=== PATIENT | male | born 1930 | race Caucasian/White ===

== ENCOUNTER 2018-04-18 09:10 | Inpatient (IN) | payer MEDICARE, BC ==
[~2018-04-18] VITALS: Ht 170.2 cm; Wt 60.0 kg
[2018-04-18] MEDS ORDERED: ipratropium/albuterol 3ml nebule NEB ONE (09:45)
[2018-04-18 10:24] LABS: BASOPHILS # (AUTO) 0.1 X10'3 (0-0.2); BASOPHILS % (AUTO) 0.8 % (0-1); EOSINOPHILS % (AUTO) 0.7 % (0-6); HEMATOCRIT 43.1 % (42.0-52.0); HEMOGLOBIN 14.3 g/dl (14.0-17.9); LYMPHOCYTES # (AUTO) 0.6 X10'3 (1.1-4.8); LYMPHOCYTES % (AUTO) 8.1 % (21-51); MEAN CORPUSCULAR HEMOGLOBIN 31.9 PG (27.0-31.0); MEAN CORPUSCULAR HGB CONC 33.2 % (33.0-36.5); MEAN CORPUSCULAR VOLUME 95.9 FL (78-98); MEAN PLATELET VOLUME 7.5 FL (7.4-10.4); MONOCYTES # (AUTO) 0.5 X10'3 (0-0.9); MONOCYTES % (AUTO) 7.7 % (2-12); NEUTROPHILS # (AUTO) 5.6 X10'3 (1.8-7.7); NEUTROPHILS % (AUTO) 82.7 % (42-75); PLATELET COUNT 234 X10'3 (140-440); RED BLOOD COUNT 4.49 X10'6 (4.70-6.10); RED CELL DISTRIBUTION WIDTH 14.4 % (11.5-14.5); WHITE BLOOD COUNT 6.8 X10'3 (4.5-11.0)
[2018-04-18 10:31] LABS: PARTIAL THROMBOPLASTIN TIME 25 SECONDS (22-32); PROTHROMBIN TIME 10.1 SECONDS (9.0-12.0)
[2018-04-18 10:38] LABS: ALANINE AMINOTRANSFERASE 29 U/L (12-78); ALBUMIN 3.2 G/DL (3.4-5.0); ALKALINE PHOSPHATASE 66 IU/L (46-116); ANION GAP 5 (8-16); ASPARTATE AMINO TRANSFERASE 22 U/L (10-37); BILIRUBIN,TOTAL 0.9 MG/DL (0.1-1.0); BLOOD UREA NITROGEN 31 MG/DL (7-18); BUN/CREATININE RATIO 28.4 (5.4-32.0); CHLORIDE 105 MMOL/L (99-107); CREATININE 1.09 MG/DL (0.60-1.10); GLUCOSE 102 MG/DL (70-104); POTASSIUM 3.7 MMOL/L (3.5-5.1); SODIUM 143 MMOL/L (135-145); TOTAL CARBON DIOXIDE 33.3 MMOL/L (24-32); TOTAL PROTEIN 6.3 G/DL (6.4-8.2); eGFR 64 ML/MIN
[2018-04-18] MEDS ORDERED: PRED5TAB PO (10:55)
[2018-04-18 13:17] LABS: OCCULT BLOOD STOOL POSITIVE (Neg)
[2018-04-18] MEDS ORDERED: magnesium Cl slow-release 64mg tablet PO PRN (13:40)
[2018-04-18] MEDS ORDERED: potassium Cl 20 mEq SR tablet PO PRN ×2 (13:40)
[2018-04-18] MEDS ORDERED: mag hydrox/Alum hydrox/simeth 30ml oral suspension PO PRN (13:40)
[2018-04-18] MEDS ORDERED: PEG 3350/Na sulf,bicarb,Cl/KCl oral sol 4 liter bottle PO ONE (13:40)
[2018-04-18] MEDS ORDERED: ondansetron/PF 4mg/2ml inj IV PRN (13:40)
[2018-04-18] MEDS ORDERED: acetaminophen 325mg tablet PO PRN (13:40)
[2018-04-18] MEDS ORDERED: magnesium 1gm/100ml D5W IVPB 100 ML IV PRN (13:40)
[2018-04-18] MEDS ORDERED: magnesium 4gm in 100ml NS 100 ML IV PRN (13:40)
[2018-04-18] MEDS ORDERED: potassium Cl 40MEQ/NS 500ml 500 ML IV PRN ×2 (13:40)
[2018-04-18 14:44] LABS: HEMATOCRIT 38.2 % (42.0-52.0); HEMOGLOBIN 12.9 g/dl (14.0-17.9); MEAN CORPUSCULAR HEMOGLOBIN 32.3 PG (27.0-31.0); MEAN CORPUSCULAR HGB CONC 33.7 % (33.0-36.5); MEAN CORPUSCULAR VOLUME 95.9 FL (78-98); MEAN PLATELET VOLUME 6.5 FL (7.4-10.4); PLATELET COUNT 256 X10'3 (140-440); RED BLOOD COUNT 3.98 X10'6 (4.70-6.10); RED CELL DISTRIBUTION WIDTH 14.3 % (11.5-14.5); WHITE BLOOD COUNT 7.2 X10'3 (4.5-11.0)
[2018-04-18 16:00] VITALS: BP 117/78
[2018-04-18 18:00] VITALS: BP 106/79
[2018-04-18 18:25] LABS: CLARITY,URINE SLIGHTLY CLOUDY (Clear); COLOR,URINE YELLOW (Yellow); GLUCOSE, URINE NEGATIVE (Neg); KETONES,URINE NEGATIVE (Neg); LEUKOCYTE ESTERASE ,URINE MODERATE (Neg); NITRITES, URINE NEGATIVE (Neg); OCCULT BLOOD,URINE LARGE (Neg); PH,URINE 5.5 (4.8-8.0); PROTEIN,URINE NEGATIVE (Neg); UROBILINOGEN,URINE 0.2 E.U/dL (0.2-1.0)
[2018-04-18] MEDS: prednisone 10mg tablet PO SCH (18:32)
[2018-04-18 18:33] LABS: UA COLLECTION TYPE NON-SPECIFIED
[2018-04-18 18:35] LABS: BACTERIA,URINE FEW /HPF (Neg); MUCUS STRANDS NONE SEEN /LPF (Neg); RBC,URINE 20-50 /HPF (0-2); SQUAMOUS EPITHELIAL CELL,UR FEW /LPF (FEW); WBC,URINE 20-30 /HPF (0-4)
[2018-04-18 21:56] LABS: HEMATOCRIT 35.9 % (42.0-52.0); HEMOGLOBIN 11.6 g/dl (14.0-17.9); MEAN CORPUSCULAR HEMOGLOBIN 30.9 PG (27.0-31.0); MEAN CORPUSCULAR HGB CONC 32.4 % (33.0-36.5); MEAN CORPUSCULAR VOLUME 95.2 FL (78-98); PLATELET COUNT 239 X10'3 (140-440); RED BLOOD COUNT 3.77 X10'6 (4.70-6.10); RED CELL DISTRIBUTION WIDTH 14.1 % (11.5-14.5); WHITE BLOOD COUNT 6.9 X10'3 (4.5-11.0)
[2018-04-18 22:00] VITALS: BP 145/75
[2018-04-19] VITALS (10 sets, daily range): BP systolic 103–147; BP diastolic 46–94
[2018-04-19 07:58] LABS: BASOPHILS % (AUTO) 0.3 % (0-1); EOSINOPHILS % (AUTO) 0.7 % (0-6); HEMATOCRIT 33.1 % (42.0-52.0); HEMOGLOBIN 11.6 g/dl (14.0-17.9); LYMPHOCYTES # (AUTO) 0.4 X10'3 (1.1-4.8); LYMPHOCYTES % (AUTO) 8.1 % (21-51); MEAN CORPUSCULAR HEMOGLOBIN 32.9 PG (27.0-31.0); MEAN CORPUSCULAR HGB CONC 34.9 % (33.0-36.5); MEAN CORPUSCULAR VOLUME 94.4 FL (78-98); MEAN PLATELET VOLUME 7.5 FL (7.4-10.4); MONOCYTES # (AUTO) 0.3 X10'3 (0-0.9); MONOCYTES % (AUTO) 6.5 % (2-12); NEUTROPHILS # (AUTO) 4.2 X10'3 (1.8-7.7); NEUTROPHILS % (AUTO) 84.4 % (42-75); PLATELET COUNT 202 X10'3 (140-440); RED BLOOD COUNT 3.51 X10'6 (4.70-6.10); RED CELL DISTRIBUTION WIDTH 14.1 % (11.5-14.5); WHITE BLOOD COUNT 4.9 X10'3 (4.5-11.0)
[2018-04-19] MEDS: prednisone 10mg tablet PO SCH (08:00)
[2018-04-19] MEDS: K and/or MAG REPLACEMENT MC SCH (08:00)
[2018-04-19 08:18] LABS: ALBUMIN 2.5 G/DL (3.4-5.0); ANION GAP 5 (8-16); BLOOD UREA NITROGEN 26 MG/DL (7-18); BUN/CREATININE RATIO 27.7 (5.4-32.0); CALCIUM 8.2 MG/DL (8.5-10.1); CHLORIDE 104 MMOL/L (99-107); CREATININE 0.94 MG/DL (0.60-1.10); GLUCOSE 93 MG/DL (70-104); MAGNESIUM 1.8 MG/DL (1.5-2.4); POTASSIUM 3.6 MMOL/L (3.5-5.1); SODIUM 144 MMOL/L (135-145); TOTAL CARBON DIOXIDE 34.8 MMOL/L (24-32); eGFR 76 ML/MIN
[2018-04-19] MEDS ORDERED: fentaNYL/PF 50MCG/1 ML 2ML syringe ONE (09:35)
[2018-04-19] MEDS ORDERED: MIDAZolam 5mg/5ml vial ONE (09:36)
[2018-04-19 14:37] LABS: HEMATOCRIT 36.5 % (42.0-52.0); HEMOGLOBIN 12.7 g/dl (14.0-17.9); MEAN CORPUSCULAR HEMOGLOBIN 33.3 PG (27.0-31.0); MEAN CORPUSCULAR HGB CONC 34.9 % (33.0-36.5); MEAN CORPUSCULAR VOLUME 95.4 FL (78-98); MEAN PLATELET VOLUME 7.4 FL (7.4-10.4); PLATELET COUNT 252 X10'3 (140-440); RED BLOOD COUNT 3.82 X10'6 (4.70-6.10); RED CELL DISTRIBUTION WIDTH 14.3 % (11.5-14.5); WHITE BLOOD COUNT 7.1 X10'3 (4.5-11.0)
[2018-04-19 19:44] LABS: HEMATOCRIT 29.8 % (42.0-52.0); HEMOGLOBIN 10.4 g/dl (14.0-17.9); MEAN CORPUSCULAR HEMOGLOBIN 33.4 PG (27.0-31.0); MEAN CORPUSCULAR HGB CONC 34.8 % (33.0-36.5); MEAN CORPUSCULAR VOLUME 96.1 FL (78-98); MEAN PLATELET VOLUME 7.6 FL (7.4-10.4); PLATELET COUNT 207 X10'3 (140-440); RED CELL DISTRIBUTION WIDTH 14.2 % (11.5-14.5); WHITE BLOOD COUNT 5.2 X10'3 (4.5-11.0)
[2018-04-19] MEDS ORDERED: CefTRIAXone/D5W-Rocephin 1gm 50 ML IV ONE (22:45)
[2018-04-20 02:13] LABS: HEMOGLOBIN 10.5 g/dl (14.0-17.9); MEAN CORPUSCULAR HEMOGLOBIN 33.7 PG (27.0-31.0); MEAN CORPUSCULAR HGB CONC 34.9 % (33.0-36.5); MEAN CORPUSCULAR VOLUME 96.4 FL (78-98); MEAN PLATELET VOLUME 7.3 FL (7.4-10.4); PLATELET COUNT 198 X10'3 (140-440); RED BLOOD COUNT 3.11 X10'6 (4.70-6.10); RED CELL DISTRIBUTION WIDTH 14.3 % (11.5-14.5); WHITE BLOOD COUNT 5.6 X10'3 (4.5-11.0)
[2018-04-20 05:00] VITALS: BP 127/74
[2018-04-20] MEDS ORDERED: tamsulosin 0.4mg capsule PO SCH ×2 (05:35→21:00)
[2018-04-20 08:00] LABS: ALBUMIN 2.5 G/DL (3.4-5.0); ANION GAP 2 (8-16); BLOOD UREA NITROGEN 20 MG/DL (7-18); BUN/CREATININE RATIO 25.3 (5.4-32.0); CALCIUM 8.1 MG/DL (8.5-10.1); CHLORIDE 105 MMOL/L (99-107); CREATININE 0.79 MG/DL (0.60-1.10); GLUCOSE 95 MG/DL (70-104); MAGNESIUM 1.8 MG/DL (1.5-2.4); POTASSIUM 3.7 MMOL/L (3.5-5.1); SODIUM 142 MMOL/L (135-145); TOTAL CARBON DIOXIDE 34.8 MMOL/L (24-32); eGFR > 90 ML/MIN
[2018-04-20] MEDS: K and/or MAG REPLACEMENT MC SCH (08:00)
[2018-04-20] MEDS ORDERED: CefTRIAXone/D5W-Rocephin 1gm 50 ML IV SCH (08:00)
[2018-04-20 08:08] LABS: BASOPHILS % (AUTO) 0 % (0-1); EOSINOPHILS # (AUTO) 0.1 X10'3 (0-0.9); HEMATOCRIT 33.1 % (42.0-52.0); HEMOGLOBIN 11.6 g/dl (14.0-17.9); LYMPHOCYTES # (AUTO) 0.5 X10'3 (1.1-4.8); LYMPHOCYTES % (AUTO) 7.8 % (21-51); MEAN CORPUSCULAR HEMOGLOBIN 33.2 PG (27.0-31.0); MEAN CORPUSCULAR HGB CONC 35.1 % (33.0-36.5); MEAN CORPUSCULAR VOLUME 94.6 FL (78-98); MEAN PLATELET VOLUME 7.4 FL (7.4-10.4); MONOCYTES # (AUTO) 0.3 X10'3 (0-0.9); NEUTROPHILS # (AUTO) 5.4 X10'3 (1.8-7.7); NEUTROPHILS % (AUTO) 86.2 % (42-75); PLATELET COUNT 222 X10'3 (140-440); RED CELL DISTRIBUTION WIDTH 13.9 % (11.5-14.5); WHITE BLOOD COUNT 6.3 X10'3 (4.5-11.0)
[2018-04-20 10:00] VITALS: BP 104/51
[2018-04-20] MEDS ORDERED: LEVO500T89 PO (11:20)
[2018-04-20] MEDS ORDERED: TAMS0.4C32 PO (11:20)
[2018-04-20] MEDS ORDERED: PANT-47 PO (11:20)
== END 2018-04-20 11:45 | disposition home health service (06) | DRG 393 ==
LOC: ER 09:15 → ED HOLD 13:39 → ORTHO 4S 15:45
PROVIDERS: ADMIT Hospitalist; ATTEND Family Medicine
PROC: 0DJD8ZZ Inspection of Lower Intestinal Tract, Via Natural or Artificial Opening Endoscopic (ICD-10-PCS; principal; 2018-04-19)
DX: K64.8 Other hemorrhoids (principal); K57.31 Diverticulosis of large intestine without perforation or abscess with bleeding; N39.0 Urinary tract infection, site not specified; B96.20 Unspecified Escherichia coli [E. coli] as the cause of diseases classified elsewhere; N40.0 Benign prostatic hyperplasia without lower urinary tract symptoms; J44.9 Chronic obstructive pulmonary disease, unspecified; Z85.038 Personal history of other malignant neoplasm of large intestine
CPT/HCPCS: 36415; 45378; 71045; 80048; 80053; 81001; 82272; 83735; 85025; 85027; 85610; 85730; 86885; 86900; 86901; 86920; 87070; 87077; 87088; 87186; 93005; 94640; 94760; 99152; 99153; 99285; A4620; J0696; J2250; J3010; J7030; J7512

== ENCOUNTER 2018-04-26 22:42 | Inpatient (IN) | payer MEDICARE, BC ==
[~2018-04-26] VITALS: Ht 170.2 cm; Wt 62.0 kg
[~2018-04-26 22:42] MED LIST: LEVO500T89 PO; PANT-47 PO; TAMS0.4C32 PO
[2018-04-26 23:03] LABS: BASOPHILS % (AUTO) 0.2 % (0-1); EOSINOPHILS # (AUTO) 0.1 X10'3 (0-0.9); EOSINOPHILS % (AUTO) 1.7 % (0-6); HEMATOCRIT 31.4 % (42.0-52.0); HEMOGLOBIN 10.3 g/dl (14.0-17.9); LYMPHOCYTES # (AUTO) 0.8 X10'3 (1.1-4.8); LYMPHOCYTES % (AUTO) 10.1 % (21-51); MEAN CORPUSCULAR HEMOGLOBIN 31.8 PG (27.0-31.0); MEAN CORPUSCULAR HGB CONC 32.9 % (33.0-36.5); MEAN CORPUSCULAR VOLUME 96.7 FL (78-98); MEAN PLATELET VOLUME 6.7 FL (7.4-10.4); MONOCYTES # (AUTO) 0.5 X10'3 (0-0.9); NEUTROPHILS # (AUTO) 6.2 X10'3 (1.8-7.7); PLATELET COUNT 224 X10'3 (140-440); RED BLOOD COUNT 3.25 X10'6 (4.70-6.10); WHITE BLOOD COUNT 7.7 X10'3 (4.5-11.0)
[2018-04-26] MEDS ORDERED: normal saline 1000ML IV soln IVB ONE (23:10)
[2018-04-26] MEDS ORDERED: normal saline 1000ml 1,000 ML IV ONE (23:10)
[2018-04-26] MEDS ORDERED: diltiazem 5mg/ml 5ml inj. IV ONE (23:15)
[2018-04-26 23:20] LABS: ALANINE AMINOTRANSFERASE 27 U/L (12-78); ALBUMIN 2.7 G/DL (3.4-5.0); ALBUMIN/GLOBULIN RATIO 0.9 (1.1-1.5); ALKALINE PHOSPHATASE 71 IU/L (46-116); ANION GAP 7 (8-16); ASPARTATE AMINO TRANSFERASE 24 U/L (10-37); BILIRUBIN,TOTAL 0.5 MG/DL (0.1-1.0); BLOOD UREA NITROGEN 22 MG/DL (7-18); BUN/CREATININE RATIO 19.8 (5.4-32.0); CALCIUM 8.2 MG/DL (8.5-10.1); CHLORIDE 102 MMOL/L (99-107); CREATININE 1.11 MG/DL (0.60-1.10); GLUCOSE 139 MG/DL (70-104); POTASSIUM 3.9 MMOL/L (3.5-5.1); SODIUM 139 MMOL/L (135-145); TOTAL CARBON DIOXIDE 29.9 MMOL/L (24-32); TOTAL PROTEIN 5.6 G/DL (6.4-8.2); eGFR 63 ML/MIN
[2018-04-26 23:21] LABS: PROTHROMBIN TIME 10.3 SECONDS (9.0-12.0)
[2018-04-26 23:22] LABS: PARTIAL THROMBOPLASTIN TIME 26 SECONDS (22-32)
[2018-04-27] MEDS ORDERED: aspirin 81mg tab.chew PO ONE (00:45)
[2018-04-27] MEDS ORDERED: diltiazem 5mg/ml 5ml inj. IV ONE (00:45)
[2018-04-27] MEDS ORDERED: normal saline 1000ML IV soln IVB ONE (01:10)
[2018-04-27] MEDS ORDERED: ondansetron/PF 4mg/2ml inj IV PRN (01:20)
[2018-04-27] MEDS ORDERED: mag hydrox/Alum hydrox/simeth 30ml oral suspension PO PRN (01:20)
[2018-04-27] MEDS ORDERED: bisacodyl 10mg suppository rectal RC PRN (01:20)
[2018-04-27] MEDS ORDERED: morphine 2 MG/ML inj. syringe IV PRN ×2 (01:20)
[2018-04-27] MEDS ORDERED: acetaminophen 650mg rectal suppository RC PRN (01:20)
[2018-04-27] MEDS ORDERED: acetaminophen 325mg tablet PO PRN (01:20)
[2018-04-27] MEDS ORDERED: diphenhydrAMINE 50 mg/ml inj IV PRN (01:20)
[2018-04-27] MEDS ORDERED: metoclopramide 5 mg/ml inj IV PRN (01:20)
[2018-04-27] MEDS ORDERED: HYDROmorphone 1 mg/ml syringe IV PRN (01:20)
[2018-04-27] MEDS ORDERED: magnesium hydroxide 30ml (MOM) UD suspension PO PRN (01:20)
[2018-04-27] MEDS ORDERED: diphenhydrAMINE 25mg capsule PO PRN (01:20)
[2018-04-27] MEDS ORDERED: HYDROcodone/acetaminophen 5mg/325mg tablet PO PRN (01:20)
[2018-04-27] MEDS ORDERED: iohexol 350MG/ML 100ml bottle IV ONE (01:27)
[2018-04-27 02:46] LABS: D-DIMER 17.57 MG/L FEU (0-0.50)
[2018-04-27] MEDS ORDERED: methylPREDNISolone sod succ 125mg/2ml vial IV ONE (03:00)
[2018-04-27] MEDS ORDERED: diphenhydrAMINE 50 mg/ml inj IV ONE (03:00)
[2018-04-27 03:30] VITALS: BP 111/90
[2018-04-27 03:33] LABS: CREATINE KINASE 46 U/L (39-308); LIPASE 184 U/L (73-393)
[2018-04-27] MEDS: normal saline 1000ml 1,000 ML IV SCH ×3 (04:00→15:03)
[2018-04-27] MEDS ORDERED: SULF1TAB49 PO (04:08)
[2018-04-27] MEDS ORDERED: heparin 10,000 units/1 ML INJ IV ONE (05:10)
[2018-04-27] MEDS ORDERED: heparin 10,000 units/1 ML INJ IV PRN (05:10)
[2018-04-27 06:00] VITALS: BP 135/85
[2018-04-27] MEDS ORDERED: pantoprazole 40 MG vial IV SCH (08:00)
[2018-04-27] MEDS ORDERED: heparin, porcine 5000 units/ml vial SQ SCH (08:00)
[2018-04-27] MEDS: levoFLOXACIN-Levaquin 500mg/D5 100 ML IV SCH (08:00)
[2018-04-27] MEDS ORDERED: BUDE10.22 IH (08:07)
[2018-04-27] MEDS: methylPREDNISolone sod succ/PF 40mg inj. IV SCH ×2 (08:13→20:31)
[2018-04-27] MEDS: docusate sod 100mg capsule PO SCH ×2 (08:15→20:31)
[2018-04-27] MEDS: metoprolol tartrate 25mg tablet PO SCH ×2 (08:16→20:31)
[2018-04-27 11:00] VITALS: BP 108/74
[2018-04-27 15:00] VITALS: BP 140/87
[2018-04-27] MEDS: albuterol 2.5 MG/3 ML nebule NEB SCH ×2 (16:23→21:04)
[2018-04-27 19:00] VITALS: BP 123/72
[2018-04-27] MEDS ORDERED: BUDESONIDE IH SCH (20:00)
[2018-04-27] MEDS ORDERED: FORMOTEROL FUMARATE IH SCH (20:00)
[2018-04-27] MEDS ORDERED: [UNRECOGNIZED DRUG - OTHER] IH SCH (20:00)
[2018-04-27] MEDS: lactobacillus rhamnosus 10,000 MMU CELLS/CAPSULE PO SCH (20:31)
[2018-04-27] MEDS: tamsulosin 0.4mg capsule PO SCH (20:32)
[2018-04-27] MEDS ORDERED: temazepam 15mg capsule PO PRN (21:00)
[2018-04-27] MEDS: BUDESONIDE 0.25 MG/2 ML AMPUL.NEB IH SCH (21:04)
[2018-04-27 23:00] VITALS: BP 131/70
[2018-04-28 03:00] VITALS: BP 134/72
[2018-04-28 03:23] LABS: BASOPHILS % (AUTO) 0 % (0-1); EOSINOPHILS # (AUTO) 0.1 X10'3 (0-0.9); EOSINOPHILS % (AUTO) 1.1 % (0-6); HEMATOCRIT 28.5 % (42.0-52.0); HEMOGLOBIN 9.5 g/dl (14.0-17.9); LYMPHOCYTES # (AUTO) 0.2 X10'3 (1.1-4.8); LYMPHOCYTES % (AUTO) 2.2 % (21-51); MEAN CORPUSCULAR HEMOGLOBIN 32.1 PG (27.0-31.0); MEAN CORPUSCULAR HGB CONC 33.2 % (33.0-36.5); MEAN CORPUSCULAR VOLUME 96.7 FL (78-98); MEAN PLATELET VOLUME 7.1 FL (7.4-10.4); MONOCYTES # (AUTO) 0.2 X10'3 (0-0.9); MONOCYTES % (AUTO) 2.5 % (2-12); NEUTROPHILS # (AUTO) 7.5 X10'3 (1.8-7.7); NEUTROPHILS % (AUTO) 94.2 % (42-75); PLATELET COUNT 208 X10'3 (140-440); RED BLOOD COUNT 2.95 X10'6 (4.70-6.10); RED CELL DISTRIBUTION WIDTH 16.3 % (11.5-14.5); WHITE BLOOD COUNT 7.9 X10'3 (4.5-11.0)
[2018-04-28 03:37] LABS: ALANINE AMINOTRANSFERASE 29 U/L (12-78); ALBUMIN 2.4 G/DL (3.4-5.0); ALBUMIN/GLOBULIN RATIO 0.9 (1.1-1.5); ALKALINE PHOSPHATASE 57 IU/L (46-116); ANION GAP 2 (8-16); ASPARTATE AMINO TRANSFERASE 22 U/L (10-37); BILIRUBIN,TOTAL 0.4 MG/DL (0.1-1.0); BLOOD UREA NITROGEN 18 MG/DL (7-18); BUN/CREATININE RATIO 20.2 (5.4-32.0); CALCIUM 7.8 MG/DL (8.5-10.1); CHLORIDE 105 MMOL/L (99-107); CREATININE 0.89 MG/DL (0.60-1.10); GLUCOSE 129 MG/DL (70-104); POTASSIUM 4.2 MMOL/L (3.5-5.1); SODIUM 137 MMOL/L (135-145); TOTAL CARBON DIOXIDE 30.3 MMOL/L (24-32); TOTAL PROTEIN 5.1 G/DL (6.4-8.2); eGFR 81 ML/MIN
[2018-04-28 07:00] VITALS: BP 125/74
[2018-04-28] MEDS: lactobacillus rhamnosus 10,000 MMU CELLS/CAPSULE PO SCH ×2 (07:55→21:54)
[2018-04-28] MEDS: metoprolol tartrate 25mg tablet PO SCH ×2 (07:55→22:00)
[2018-04-28] MEDS: pantoprazole 40mg Tablet.DR PO SCH (07:55)
[2018-04-28] MEDS: docusate sod 100mg capsule PO SCH ×2 (07:55→21:53)
[2018-04-28] MEDS: methylPREDNISolone sod succ/PF 40mg inj. IV SCH ×2 (07:56→21:53)
[2018-04-28] MEDS: albuterol 2.5 MG/3 ML nebule NEB SCH ×4 (07:57→19:41)
[2018-04-28] MEDS: BUDESONIDE 0.25 MG/2 ML AMPUL.NEB IH SCH ×2 (07:57→19:41)
[2018-04-28] MEDS: levoFLOXACIN-Levaquin 500mg/D5 100 ML IV SCH (08:00)
[2018-04-28] MEDS ORDERED: pantoprazole 40mg Tablet.DR PO SCH (08:00)
[2018-04-28 11:00] VITALS: BP 112/70
[2018-04-28 15:00] VITALS: BP 118/73
[2018-04-28 19:00] VITALS: BP 122/69
[2018-04-28] MEDS: tamsulosin 0.4mg capsule PO SCH (21:00)
[2018-04-28 23:00] VITALS: BP 104/80
[2018-04-28 23:17] LABS: BASOPHILS % (AUTO) 0 % (0-1); EOSINOPHILS % (AUTO) 0 % (0-6); HEMATOCRIT 29.2 % (42.0-52.0); HEMOGLOBIN 9.6 g/dl (14.0-17.9); LYMPHOCYTES # (AUTO) 0.5 X10'3 (1.1-4.8); LYMPHOCYTES % (AUTO) 5.3 % (21-51); MEAN CORPUSCULAR HEMOGLOBIN 31.8 PG (27.0-31.0); MEAN CORPUSCULAR HGB CONC 32.7 % (33.0-36.5); MEAN CORPUSCULAR VOLUME 97.2 FL (78-98); MEAN PLATELET VOLUME 7.3 FL (7.4-10.4); MONOCYTES # (AUTO) 0.6 X10'3 (0-0.9); MONOCYTES % (AUTO) 6.2 % (2-12); NEUTROPHILS # (AUTO) 7.9 X10'3 (1.8-7.7); NEUTROPHILS % (AUTO) 88.5 % (42-75); PLATELET COUNT 217 X10'3 (140-440); RED CELL DISTRIBUTION WIDTH 16.9 % (11.5-14.5); WHITE BLOOD COUNT 8.9 X10'3 (4.5-11.0)
[2018-04-29 03:00] VITALS: BP 134/80
[2018-04-29 05:34] LABS: BASOPHILS % (AUTO) 0 % (0-1); EOSINOPHILS # (AUTO) 0.1 X10'3 (0-0.9); EOSINOPHILS % (AUTO) 1.3 % (0-6); HEMATOCRIT 29.1 % (42.0-52.0); HEMOGLOBIN 9.7 g/dl (14.0-17.9); LYMPHOCYTES # (AUTO) 0.2 X10'3 (1.1-4.8); LYMPHOCYTES % (AUTO) 2.1 % (21-51); MEAN CORPUSCULAR HEMOGLOBIN 32.3 PG (27.0-31.0); MEAN CORPUSCULAR HGB CONC 33.3 % (33.0-36.5); MEAN CORPUSCULAR VOLUME 96.8 FL (78-98); MEAN PLATELET VOLUME 7.6 FL (7.4-10.4); MONOCYTES # (AUTO) 0.2 X10'3 (0-0.9); MONOCYTES % (AUTO) 2.5 % (2-12); NEUTROPHILS # (AUTO) 7.9 X10'3 (1.8-7.7); NEUTROPHILS % (AUTO) 94.1 % (42-75); PLATELET COUNT 200 X10'3 (140-440); RED BLOOD COUNT 3.01 X10'6 (4.70-6.10); RED CELL DISTRIBUTION WIDTH 16.5 % (11.5-14.5); WHITE BLOOD COUNT 8.4 X10'3 (4.5-11.0)
[2018-04-29 06:00] VITALS: BP 137/74
[2018-04-29 06:02] LABS: ALANINE AMINOTRANSFERASE 29 U/L (12-78); ALBUMIN 2.4 G/DL (3.4-5.0); ALBUMIN/GLOBULIN RATIO 0.9 (1.1-1.5); ALKALINE PHOSPHATASE 63 IU/L (46-116); ANION GAP 8 (8-16); ASPARTATE AMINO TRANSFERASE 24 U/L (10-37); BILIRUBIN,TOTAL 0.4 MG/DL (0.1-1.0); BLOOD UREA NITROGEN 23 MG/DL (7-18); CALCIUM 7.9 MG/DL (8.5-10.1); CHLORIDE 103 MMOL/L (99-107); CREATININE 0.96 MG/DL (0.60-1.10); GLUCOSE 109 MG/DL (70-104); POTASSIUM 4.3 MMOL/L (3.5-5.1); SODIUM 138 MMOL/L (135-145); TOTAL CARBON DIOXIDE 26.6 MMOL/L (24-32); TOTAL PROTEIN 5.2 G/DL (6.4-8.2); eGFR 74 ML/MIN
[2018-04-29] MEDS: BUDESONIDE 0.25 MG/2 ML AMPUL.NEB IH SCH ×2 (07:35→20:00)
[2018-04-29] MEDS: albuterol 2.5 MG/3 ML nebule NEB SCH ×4 (07:35→20:00)
[2018-04-29] MEDS: lactobacillus rhamnosus 10,000 MMU CELLS/CAPSULE PO SCH ×2 (07:41→20:00)
[2018-04-29] MEDS: metoprolol tartrate 25mg tablet PO SCH ×2 (07:41→20:00)
[2018-04-29] MEDS: pantoprazole 40mg Tablet.DR PO SCH (07:41)
[2018-04-29] MEDS: docusate sod 100mg capsule PO SCH ×2 (07:41→20:00)
[2018-04-29] MEDS: methylPREDNISolone sod succ/PF 40mg inj. IV SCH ×2 (07:41→20:00)
[2018-04-29 11:00] VITALS: BP 106/67
[2018-04-29] MEDS ORDERED: levoFLOXACIN 500mg tablet PO SCH (11:00)
[2018-04-29 15:00] VITALS: BP 120/70
[2018-04-29 19:00] VITALS: BP 118/78
[2018-04-29] MEDS: tamsulosin 0.4mg capsule PO SCH (21:00)
[2018-04-30 05:29] LABS: BASOPHILS % (AUTO) 0 % (0-1); EOSINOPHILS # (AUTO) 0.2 X10'3 (0-0.9); EOSINOPHILS % (AUTO) 2.2 % (0-6); HEMATOCRIT 29.2 % (42.0-52.0); HEMOGLOBIN 9.6 g/dl (14.0-17.9); LYMPHOCYTES # (AUTO) 0.5 X10'3 (1.1-4.8); LYMPHOCYTES % (AUTO) 7.2 % (21-51); MEAN CORPUSCULAR HEMOGLOBIN 32.2 PG (27.0-31.0); MEAN CORPUSCULAR VOLUME 97.6 FL (78-98); MEAN PLATELET VOLUME 7.2 FL (7.4-10.4); MONOCYTES # (AUTO) 0.6 X10'3 (0-0.9); MONOCYTES % (AUTO) 8.4 % (2-12); NEUTROPHILS % (AUTO) 82.2 % (42-75); PLATELET COUNT 212 X10'3 (140-440); RED BLOOD COUNT 2.99 X10'6 (4.70-6.10); RED CELL DISTRIBUTION WIDTH 16.3 % (11.5-14.5); WHITE BLOOD COUNT 7.3 X10'3 (4.5-11.0)
[2018-04-30 06:09] LABS: ALANINE AMINOTRANSFERASE 28 U/L (12-78); ALBUMIN 2.4 G/DL (3.4-5.0); ALKALINE PHOSPHATASE 65 IU/L (46-116); ANION GAP 3 (8-16); ASPARTATE AMINO TRANSFERASE 27 U/L (10-37); BILIRUBIN,TOTAL 0.4 MG/DL (0.1-1.0); BLOOD UREA NITROGEN 25 MG/DL (7-18); BUN/CREATININE RATIO 27.8 (5.4-32.0); CALCIUM 8.2 MG/DL (8.5-10.1); CHLORIDE 106 MMOL/L (99-107); GLUCOSE 93 MG/DL (70-104); POTASSIUM 3.8 MMOL/L (3.5-5.1); SODIUM 141 MMOL/L (135-145); TOTAL CARBON DIOXIDE 32.1 MMOL/L (24-32); TOTAL PROTEIN 4.9 G/DL (6.4-8.2); eGFR 80 ML/MIN
[2018-04-30] MEDS: pantoprazole 40mg Tablet.DR PO SCH (07:30)
[2018-04-30] MEDS: albuterol 2.5 MG/3 ML nebule NEB SCH ×2 (07:58→21:12)
[2018-04-30] MEDS: BUDESONIDE 0.25 MG/2 ML AMPUL.NEB IH SCH ×2 (07:58→21:12)
[2018-04-30] MEDS: docusate sod 100mg capsule PO SCH ×2 (08:00→20:12)
[2018-04-30 08:35] VITALS: BP 119/71
[2018-04-30] MEDS: metoprolol tartrate 25mg tablet PO SCH ×2 (09:10→20:12)
[2018-04-30] MEDS: lactobacillus rhamnosus 10,000 MMU CELLS/CAPSULE PO SCH ×2 (09:10→20:12)
[2018-04-30] MEDS: methylPREDNISolone sod succ/PF 40mg inj. IV SCH ×4 (09:11→20:27)
[2018-04-30 11:00] VITALS: BP 108/70
[2018-04-30 15:00] VITALS: BP 117/84
[2018-04-30 19:00] VITALS: BP 131/70
[2018-04-30] MEDS: tamsulosin 0.4mg capsule PO SCH (20:12)
[2018-04-30 23:00] VITALS: BP 155/93
[2018-05-01 03:00] VITALS: BP 140/87
[2018-05-01 05:45] LABS: BASOPHILS % (AUTO) 0 % (0-1); EOSINOPHILS # (AUTO) 0.1 X10'3 (0-0.9); HEMATOCRIT 29.4 % (42.0-52.0); HEMOGLOBIN 9.7 g/dl (14.0-17.9); LYMPHOCYTES # (AUTO) 0.3 X10'3 (1.1-4.8); LYMPHOCYTES % (AUTO) 5.2 % (21-51); MEAN CORPUSCULAR HGB CONC 33.1 % (33.0-36.5); MEAN CORPUSCULAR VOLUME 96.8 FL (78-98); MONOCYTES # (AUTO) 0.4 X10'3 (0-0.9); MONOCYTES % (AUTO) 6.1 % (2-12); NEUTROPHILS # (AUTO) 5.7 X10'3 (1.8-7.7); NEUTROPHILS % (AUTO) 87.7 % (42-75); PLATELET COUNT 214 X10'3 (140-440); RED BLOOD COUNT 3.03 X10'6 (4.70-6.10); RED CELL DISTRIBUTION WIDTH 16.3 % (11.5-14.5); WHITE BLOOD COUNT 6.6 X10'3 (4.5-11.0)
[2018-05-01 06:00] VITALS: BP 139/64
[2018-05-01 06:01] LABS: ALANINE AMINOTRANSFERASE 27 U/L (12-78); ALBUMIN 2.3 G/DL (3.4-5.0); ALKALINE PHOSPHATASE 58 IU/L (46-116); ANION GAP 2 (8-16); ASPARTATE AMINO TRANSFERASE 22 U/L (10-37); BILIRUBIN,TOTAL 0.6 MG/DL (0.1-1.0); BLOOD UREA NITROGEN 22 MG/DL (7-18); BUN/CREATININE RATIO 26.8 (5.4-32.0); CALCIUM 8.2 MG/DL (8.5-10.1); CHLORIDE 105 MMOL/L (99-107); CREATININE 0.82 MG/DL (0.60-1.10); GLUCOSE 124 MG/DL (70-104); SODIUM 140 MMOL/L (135-145); TOTAL CARBON DIOXIDE 33.5 MMOL/L (24-32); TOTAL PROTEIN 4.7 G/DL (6.4-8.2); eGFR 89 ML/MIN
[2018-05-01] MEDS: lactobacillus rhamnosus 10,000 MMU CELLS/CAPSULE PO SCH ×2 (08:50→21:06)
[2018-05-01] MEDS: metoprolol tartrate 25mg tablet PO SCH ×2 (08:50→21:08)
[2018-05-01] MEDS: docusate sod 100mg capsule PO SCH ×2 (08:51→21:07)
[2018-05-01] MEDS: pantoprazole 40mg Tablet.DR PO SCH (08:51)
[2018-05-01] MEDS: methylPREDNISolone sod succ/PF 40mg inj. IV SCH ×2 (08:51→21:08)
[2018-05-01] MEDS: BUDESONIDE 0.25 MG/2 ML AMPUL.NEB IH SCH (09:47)
[2018-05-01] MEDS: albuterol 2.5 MG/3 ML nebule NEB SCH (09:47)
[2018-05-01 11:00] VITALS: BP 102/61
[2018-05-01] MEDS ORDERED: ALBU8.5H8 INH (11:02)
[2018-05-01] MEDS ORDERED: METO25TA6 PO (11:02)
[2018-05-01] MEDS ORDERED: ADV50250 IH (11:02)
[2018-05-01] MEDS: ipratropium 0.5 MG/2.5ML nebule IH SCH ×2 (14:20→19:44)
[2018-05-01 15:00] VITALS: BP_SYST 103; BP_SYST 109; BP_DIAS 39; BP_DIAS 70
[2018-05-01 18:00] VITALS: BP 125/67
[2018-05-01] MEDS: tamsulosin 0.4mg capsule PO SCH (21:06)
[2018-05-01 22:00] VITALS: BP 117/70
[2018-05-02 02:00] VITALS: BP 133/82
[2018-05-02 06:00] VITALS: BP 128/65
[2018-05-02 06:31] LABS: ALANINE AMINOTRANSFERASE 27 U/L (12-78); ALBUMIN 2.3 G/DL (3.4-5.0); ALBUMIN/GLOBULIN RATIO 0.9 (1.1-1.5); ALKALINE PHOSPHATASE 58 IU/L (46-116); ANION GAP 6 (8-16); ASPARTATE AMINO TRANSFERASE 19 U/L (10-37); BILIRUBIN,TOTAL 0.7 MG/DL (0.1-1.0); BLOOD UREA NITROGEN 23 MG/DL (7-18); BUN/CREATININE RATIO 33.3 (5.4-32.0); CALCIUM 8.1 MG/DL (8.5-10.1); CHLORIDE 104 MMOL/L (99-107); CREATININE 0.69 MG/DL (0.60-1.10); GLUCOSE 126 MG/DL (70-104); POTASSIUM 4.5 MMOL/L (3.5-5.1); SODIUM 138 MMOL/L (135-145); TOTAL CARBON DIOXIDE 28.3 MMOL/L (24-32); TOTAL PROTEIN 4.9 G/DL (6.4-8.2); eGFR > 90 ML/MIN
[2018-05-02] MEDS: ipratropium 0.5 MG/2.5ML nebule IH SCH ×3 (07:50→15:18)
[2018-05-02] MEDS: docusate sod 100mg capsule PO SCH (09:12)
[2018-05-02] MEDS: metoprolol tartrate 25mg tablet PO SCH (09:12)
[2018-05-02] MEDS: lactobacillus rhamnosus 10,000 MMU CELLS/CAPSULE PO SCH (09:13)
[2018-05-02] MEDS: pantoprazole 40mg Tablet.DR PO SCH (09:13)
[2018-05-02] MEDS: methylPREDNISolone sod succ/PF 40mg inj. IV SCH (09:14)
[2018-05-02 09:35] LABS: BASOPHILS % (AUTO) 0 % (0-1); EOSINOPHILS # (AUTO) 0.1 X10'3 (0-0.9); EOSINOPHILS % (AUTO) 1.2 % (0-6); HEMATOCRIT 29.9 % (42.0-52.0); HEMOGLOBIN 9.8 g/dl (14.0-17.9); LYMPHOCYTES # (AUTO) 0.4 X10'3 (1.1-4.8); MEAN CORPUSCULAR HEMOGLOBIN 31.8 PG (27.0-31.0); MEAN CORPUSCULAR HGB CONC 32.9 % (33.0-36.5); MEAN CORPUSCULAR VOLUME 96.6 FL (78-98); MEAN PLATELET VOLUME 6.7 FL (7.4-10.4); MONOCYTES # (AUTO) 0.4 X10'3 (0-0.9); NEUTROPHILS # (AUTO) 5.7 X10'3 (1.8-7.7); NEUTROPHILS % (AUTO) 86.8 % (42-75); PLATELET COUNT 232 X10'3 (140-440); RED CELL DISTRIBUTION WIDTH 16.6 % (11.5-14.5); WHITE BLOOD COUNT 6.5 X10'3 (4.5-11.0)
[2018-05-02 11:00] VITALS: BP 123/69
[2018-05-02] MEDS ORDERED: ALBU2SYR PO (11:42)
[2018-05-02] MEDS ORDERED: TIOT18CA3 (11:42)
== END 2018-05-02 17:30 | disposition home health service (06) | DRG 175 ==
LOC: ER 22:42 → ED HOLD 04-27 01:18 → PCU 3S 04-27 03:34
PROVIDERS: ADMIT Family Medicine; ATTEND Family Medicine
PROC: B32T1ZZ Computerized Tomography (CT Scan) of Left Pulmonary Artery using Low Osmolar Contrast (ICD-10-PCS; principal; 2018-04-27)
PROC: B3201ZZ Computerized Tomography (CT Scan) of Thoracic Aorta using Low Osmolar Contrast (ICD-10-PCS; 2018-04-27)
PROC: B32S1ZZ Computerized Tomography (CT Scan) of Right Pulmonary Artery using Low Osmolar Contrast (ICD-10-PCS; 2018-04-27)
DX: I26.99 Other pulmonary embolism without acute cor pulmonale (principal); E43 Unspecified severe protein-calorie malnutrition; J44.1 Chronic obstructive pulmonary disease with (acute) exacerbation; S22.060A Wedge compression fracture of T7-T8 vertebra, initial encounter for closed fracture; S22.080A Wedge compression fracture of T11-T12 vertebra, initial encounter for closed fracture; J96.11 Chronic respiratory failure with hypoxia; K62.5 Hemorrhage of anus and rectum; I48.91 Unspecified atrial fibrillation; I50.9 Heart failure, unspecified; X58.XXXA Exposure to other specified factors, initial encounter; Z99.81 Dependence on supplemental oxygen; Z90.49 Acquired absence of other specified parts of digestive tract; Z88.1 Allergy status to other antibiotic agents; Z79.899 Other long term (current) drug therapy; Z85.038 Personal history of other malignant neoplasm of large intestine; Z85.46 Personal history of malignant neoplasm of prostate; Z87.891 Personal history of nicotine dependence; Y93.89 Activity, other specified; Y92.89 Other specified places as the place of occurrence of the external cause; Y99.8 Other external cause status; Z68.21 Body mass index [BMI] 21.0-21.9, adult
CPT/HCPCS: 36415; 71045; 71275; 74176; 80053; 82550; 83605; 83690; 83735; 83880; 84100; 84145; 84443; 84484; 85025; 85379; 85610; 85730; 86885; 86900; 86901; 87040; 87070; 93005; 93306; 93970; 94640; 94760; 96374; 97110; 97116; 97161; 99291; C9113; J1200; J1644; J1956; J2920; J2930; J3490; J7030; Q9967